=== PATIENT | male | born 1955 ===

== ENCOUNTER 2016-08-17 09:25 | Emergency (ER) | payer OTHER ==
[2016-08-17 09:34] VITALS: BP 139/75
--- NOTE | 2016-08-17 10:35 | UC ---
Skin Complaint HPI - HPI Summary HPI Summary: 1/2 cm laceration left index finger proximal phalanx hansen side on a box toe cementer 1 hour prior to arrival - History of Current Complaint Chief Complaint: UCLaceration Time Seen by Provider: 08/17/16 10:34 Stated Complaint: LT INDEX FINGER INJURY Hx Obtained From: Patient Onset/Duration: Sudden Onset, Still Present Skin Exposure Onset/Duration: Minutes Ago - 30 Timing: Constant Onset Severity: Mild Current Severity: None Pain Scale Used: 0-10 Numeric - 2 Location: Discrete Aggravating: Nothing Alleviating: Other - direct pressure Associated Signs & Symptoms: Positive: Negative - Allergy/Home Medications Allergies/Adverse Reactions: Allergies Allergy/AdvReac Type Severity Reaction Status Date / Time No Known Allergies Allergy Verified 08/17/16 09:34 Review of Systems Constitutional: Negative Skin: Other - 5mm open area left index finger-laceration from a craft knife Eyes: Negative ENT: Negative Respiratory: Negative Cardiovascular: Negative Gastrointestinal: Negative Genitourinary: Negative Motor: Negative Neurovascular: Other - slight tingling distal to injury -full rom Musculoskeletal: Negative Neurological: Negative Psychological: Negative All Other Systems Reviewed And Are Negative: Yes PMH/Surg Hx/FS Hx/Imm Hx Previously Healthy: Yes - Surgical History Surgical History: None - Family History Known Family History: Negative: Respiratory Disease Family History: no reported cardiovascular issues in family lineage - Social History Occupation: Employed Full-time - supervisor delivery department Lives: With Family Alcohol Use: None Substance Use Type: None Smoking Status (MU): Never Smoked Tobacco Physical Exam Triage Information Reviewed: Yes Appearance: Well-Appearing, No Pain Distress, Well-Nourished Vital Signs: Initial Vital Signs Temp 97.9 F 08/17/16 09:30 Pulse 58 08/17/16 09:30 Resp 18 08/17/16 09:30 BP 139/75 08/17/16 09:30 Pulse Ox 99 08/17/16 09:30 Vital Signs Reviewed: Yes Eye Exam: Normal Eyes: Positive: Conjunctiva Clear ENT Exam: Normal ENT: Positive: Normal ENT inspection, Hearing grossly normal. Negative: Nasal congestion, Nasal drainage, Trismus, Muffled/hoarse voice Neck exam: Normal Neck: Positive: Supple, Nontender Respiratory Exam: Normal Respiratory: Positive: No respiratory distress, No accessory muscle use Cardiovascular Exam: Normal Cardiovascular: Positive: RRR, Pulses Normal, Brisk Capillary Refill Musculoskeletal Exam: Normal Musculoskeletal: Positive: Strength Intact, ROM Intact, No Edema Neurological Exam: Normal Neurological: Positive: Alert, Muscle Tone Normal Psychological Exam: Normal Skin: Positive: Other - laceration as described Laceration Repair - Laceration Repair 1 Description: Linear Laceration Size After Repair: Length (cm) - 0.5, Width (mm) - 1, Depth (mm) - 3 Modified For Repair: No Cleansing Completed Via Routine Prep: Yes Irrigation With Pressure Irrigation Device: Yes Closure Material: Skin Adhesive, SteriStrips Re-Evaluation - Re-Evaluation First Eval Change: Improved - well approximated-n/m/c intact Course/Dx - Course Course Of Treatment: steri strip and skin glue care for laceration, follow with pcp if needed - Differential Diagnoses - Skin Complaint Differential Diagnoses: Impetigo, Other - laceration repair - Diagnoses Provider Diagnoses: Laceration repair left index finger Discharge - Discharge Plan Condition: Stable Disposition: HOME Patient Education Materials: Diphtheria/Acellular Pertussis/Tetanus Booster Vaccine (Tdap) (Injection), Skin Adhesive Care (ED), Steristrips (ED) Referrals: Fay Gabriel MD [Primary Care Provider] - If Needed
[2016-08-17] MEDS ORDERED: Tetan/Diph/Pertus SYR(Tdap)* 0.5 ML SYR(BOOSTRIX) use SYR IM ONE (10:41)
== END 2016-08-17 10:55 | disposition home or self-care (01) ==
LOC: UCCORT 09:25
DX: S61.211A Laceration without foreign body of left index finger without damage to nail, initial encounter (principal); W26.0XXA Contact with knife, initial encounter; Y92.9 Unspecified place or not applicable
CPT/HCPCS: 90471; 90715; 99211; G0463